=== PATIENT | female | born 1995 | race Caucasian/White ===

== ENCOUNTER 2017-01-31 22:35 | Emergency (ER) | payer BC, OTHER ==
[~2017-01-31] VITALS: Ht 165.1 cm; Wt 68.0 kg
[2017-01-31 22:35] VITALS: BP 138/63
[2017-02-01] MEDS ORDERED: NORCO 5/325MG TABLET (BULK FOR ED) PO ONE (01:15)
--- NOTE | 2017-02-01 02:17 | REP ---
Clinical: Trauma/injury . Technique: AP, lateral, bilateral oblique views right ankle . Findings: No acute fracture or dislocation. Skeletal structures and joint spaces are intact and normal. Ankle mortise appears stable. No subcutaneous emphysema or radiodense foreign body. Impression: Normal right ankle radiograph series. No acute fracture or dislocation. Signed by Brian Parks MD 02/01/2017 02:08 A
== END 2017-02-01 01:33 | disposition home or self-care (01) ==
LOC: M ED 02-01 00:40
DX: S93.401A Sprain of unspecified ligament of right ankle, initial encounter (principal); X50.1XXA Overexertion from prolonged static or awkward postures, initial encounter; Y92.320 Baseball field as the place of occurrence of the external cause; Y93.02 Activity, running; Y99.9 Unspecified external cause status

== ENCOUNTER → 2017-12-24 | Outpatient (REF) | payer BC, OTHER | LOC: M LAB REF 17:35 | DX: J02.9 Acute pharyngitis, unspecified (principal) | CPT/HCPCS: 87070 ==

== ENCOUNTER → 2021-08-19 | Outpatient (REF) | payer OTHER | LOC: M PLALAB 10:21 | PROVIDERS: ATTEND Nurse Practitioner Women's Health | DX: Z12.4 Encounter for screening for malignant neoplasm of cervix (principal); R87.612 Low grade squamous intraepithelial lesion on cytologic smear of cervix (LGSIL) ==